=== PATIENT | male | born 1960 | race Two or more races ===

== ENCOUNTER 2020-09-01 10:55 | Emergency (ER) | payer SELFPAY ==
[~2020-09-01] VITALS: Ht 172.7 cm; Wt 95.3 kg
[2020-09-01 14:32] VITALS: BP 138/75
== END 2020-09-01 14:37 | disposition home or self-care (01) ==
LOC: ER 10:55
DX: M75.31 Calcific tendinitis of right shoulder (principal); M19.011 Primary osteoarthritis, right shoulder
CPT/HCPCS: 73030